=== PATIENT | male | born 1975 | race Caucasian/White ===

== ENCOUNTER → 2017-12-04 06:38 | Outpatient (CLI) | payer OTHER, SELFPAY ==
--- NOTE | 2017-12-04 | DI.MRI.S_ITS ---
PROCEDURE: MR ANKLE RT WO CON INDICATIONS: 42-year-old male with chronic right ankle pain, and posterior tibialis tendon dysfunction. TECHNIQUE: Noncontrast sagittal T1 spin echo and T2 fast spin echo with fat saturation, axial proton density fast spin echo and T2 fast spin echo with fat saturation, coronal T1 spin echo and T2 fast spin echo with fat saturation through the ankle/hindfoot. COMPARISON: [facility], RG, FOOT COMP MIN 3VW (RT), 10/02/2017, 12:19. [facility], CR, XR FOOT 3VW RT, 01/20/2017, 9:08. [facility], MR, MR FOOT RIGHT WITHOUT CONTRAST, 12/12/2016, 17:00. [facility], RG, FOOT COMP MIN 3VW (RT), 06/22/2016, 14:52. [facility], MR, MR FOOT RIGHT WITHOUT CONTRAST, 06/15/2016, 16:40. FINDINGS: Image quality: Excellent. Bones and joints: No bone marrow contusions or fractures. Reactive bone marrow edema within the medial navicular pole has decreased. No hindfoot coalitions. No osteochondral injuries of the talar dome. No pathologic joint effusions. Medial structures: The posterior tibialis, flexor digitorum longus, and flexor hallucis longus tendons are intact. There is localized signal heterogeneity within the distal posterior tibialis tendon as before, consistent with tendinopathy without tears. There is small posterior tibialis tendon sheath fluid as well. The posterior tibial neurovascular bundle appears normal within the tarsal tunnel, without extrinsic mass effect. The deep layer and superficial layer of the deltoid ligament appear normal. The spring ligament components are intact. Lateral structures: The anterior talofibular, calcaneofibular, and posterior talofibular ligaments appear intact. More superiorly, the anterior and posterior tibiofibular ligaments appear intact, as is the intermalleolar ligament. The tibiofibular syndesmosis is normal in width at 2 mm or less. The peroneus longus and brevis tendons demonstrate normal location and morphology. Adjacent bony peroneal tubercle and retrotrochlear prominence are normal in size. The sinus tarsi demonstrates normal fatty signal, without edema, fibrosis, or cyst formation. Visualized sinus tarsi components appear normal. The calcaneonavicular and calcaneocuboid components of the bifurcate ligament appear intact. The dorsal calcaneocuboid ligament appears intact. Anterior structures: The tibialis anterior, extensor hallucis longus, and extensor digitorum longus tendons appear intact. The dorsal talonavicular ligament appears intact. Posterior and plantar structures: Achilles tendon is intact. Medial and lateral bands of the plantar fascia are of normal thickness. No abductor digiti quinti muscle atrophy to suggest Carbajal neuropathy. IMPRESSION: Findings of persistent distal posterior tibialis tenosynovitis and tendinopathy, without discrete tears identified. Localized reactive marrow edema involving the medial navicular pole has decreased since December 2016. Dictated by: Pablito Buckley M.D. on 12/04/2017 at 9:00 Approved by: Pablito Buckley M.D. on 12/04/2017 at 9:14
== END ==
PROVIDERS: Visit Provider Orthopaedic Surgery Foot and Ankle Surgery
DX: M25.571 Pain in right ankle and joints of right foot (principal); M65.9 Synovitis and tenosynovitis, unspecified
CPT/HCPCS: 73721

== ENCOUNTER 2018-01-05 06:39 | Day surgery (SDC) | payer OTHER, SELFPAY ==
[2017-12-27 16:20] VITALS: BMI 28.5
[2018-01-05 07:17] VITALS: BP 134/88; PULSE 65; RESP 16; TEMP 36.1; O2SAT 98; BMI 28.5
--- NOTE | 2018-01-05 07:26 | PM.PREOP ---
Pre-operative Note Interval Note Pre-op Check: Yes History & Physical Reviewed by Physician and Yes Exam Performed Changes: No
[2018-01-05] MEDS: LACTATED RINGERS 1,000 ML 42 ML IV (07:30)
[2018-01-05] MEDS: CEFAZOLIN 2 GM/100 ML FROZ.PIGGY IV (08:09)
--- NOTE | 2018-01-05 08:13 | SUR.PREOP ---
Block start time [0750] . Monitoring initiated and maintained throughout procedure. Oxygen and medications given per anesthesiologist instructions. Patient remained stable throughout procedure, no adverse reactions noted. Block end time [0804].
--- NOTE | 2018-01-05 08:28 | SUR.OPER ---
Supine on padded OR bed, head on pillow, arms secured on padded arm boards at <90 degrees abduction, safety belt at abdomen, tape over blanket over lower left leg, right leg draped free.
[2018-01-05] MEDS: BUPIVACAINE 0.5% (PF) VIAL 30 ML INJ (08:43)
--- NOTE | 2018-01-05 08:46 | PM.PROC.1 ---
Procedures Date/Time Date of procedure: 01/05/18 Time of procedure: 07:50 General Procedure description: Ultrasound guided adductor canal nerve block for post op pain control after Right posterior tibialis tendon debridement/gastroc lengthening by Dr. Peters. Risk and benefits of procedure discussed with patient. ASA monitoring applied to patient. O2 given via nasal cannula. 2 mg Versed and 50 mcg fentanyl given for procedural sedation. Skin site was prepped with chlorhexidine and allowed to fully dry. Sterile gloves, mask, hat and probe cover were used to maintain sterility. 2% lidocaine and 30ga needle was used to make a small skin wheal at needle insertion site. Under ultrasound guidance, a 21ga 100mm Pajunk needle was directed into the adductor canal near femoral artery and saphenous nerve at the level of mid thigh. Patient reported no parasthesias. After negative aspiration, 10 mL 0.5% ropivicaine and 3mg dexamethasone were injected around saphenous nerve. Patient tolerated procedure well. Skin prepped with chlorhexidine for popliteal approach Sciatic nerve block with ultrasound guidance, similar technique as described above was employed. Needle tip was guided to division of the sciatic nerve in the popliteal fossa. After negative aspiration, 20ml 0.5% ropivicaine plus 7mg dexamethasone were injected without parasthesias. Good spread of medication around sciatic nerve.
[2018-01-05 09:35] VITALS: BP 109/66; PULSE 68; RESP 16; TEMP 36.3; O2SAT 98
[2018-01-05 09:40] VITALS: BP 116/81; PULSE 68; RESP 17; O2SAT 98
[2018-01-05] MEDS: fentaNYL 100 MCG/2 ML INJ 50 MCG IV ×3 (09:41→09:55)
[2018-01-05 09:45] VITALS: BP 112/76; PULSE 64; RESP 17; O2SAT 98
[2018-01-05 09:57] VITALS: BP 125/84; PULSE 75; RESP 17; TEMP 36.1; O2SAT 96
[2018-01-05] MEDS: HYDROMORPHONE 1 MG INJ 0.5 MG IV (10:00)
--- NOTE | 2018-01-05 10:02 | P.OP_ITS ---
Operative Date/Time/Diagnoses Date of procedure: 01/05/18 Time of procedure: 09:40 Pre-op diagnosis: 1. Right posterior tibialis tendinitis, PTTD stage I 2. Gastrocnemius contracture/equinus 3. Low vitamin-D level Post-op diagnosis: same Procedure & Clinicians Procedure: 1. Gastroc lengthening , resection, right CPT 26783 2. tenosynovectomy right posterior tibialis tendon, tenolysis flexor CPT code 91388 Same procedure as scheduled: Yes Indications: The patient is a 42-year-old male with over 18 months of right foot arch pain and posterior tibialis tendinitis. Patient has failed exhaustive conservative treatment with initial casting for 6 weeks in June 2016 followed by utilization of a walking boot and physical therapy. He has also failed custom orthotics and several other courses of physical therapy. States the pain bothers him every day. Previous MRI he has been noted to have medial navicular bone marrow edema but on the most recent MRI this has improved however the patient continues to have pain along the posterior tibialis tendon remarkable gastroc tightness. He is in treatment for his low vitamin-D level. Given his failure of extensive conservative treatment he has been indicated for a posterior tibialis tendon debridement tenosynovectomy possible repair or transfer and gastroc lengthening. The risks benefits and alternatives to the procedure were discussed with the patient in detail including infection, persistent pain, inability to return to his desired activity level, damage to nerves or vessels, DVT, PE, need for additional surgery, cardiopulmonary complications associated with general anesthesia and . Patient expressed understanding of these risks and elected to proceed with surgery. Consent was signed in the office Surgeon: Florencia Peters Religious Activities Director: Liliana Quintanilla Anesthesia Type: General and Peripheral nerve block Operative Notes Findings: Mild posterior tibialis tendon synovitis. No rupture or gross tearing. There is a small area of mucoid degenerative tissue at the distal inferior posterior tibialis tendon this was carefully debrided. Closure Type: primary Specimen(s): none sent Implants & Drains: None Estimated Blood Loss (mL): 5 Blood products transfused: none Tourniquet time (min): 59 Procedure in detail: Patient was seen and evaluated in the preoperative area. Informed consent was confirmed and the patient's side and site of surgery was marked. Final questions were answered. Patient was then brought to the block room by the anesthesia team. Saphenous nerve block was performed for intraop and postop pain control. The patient was then taken to the operating room and placed supine on the operating table. General anesthesia was administered. All bony prominence were padded. An SCD was placed on the contralateral leg. Care was taken to make sure the heel and peroneal nerve were well padded. Well-padded thigh tourniquet was placed on the operative leg. The operative leg was prepped and draped in the standard sterile fashion after a initial scrubbed with alcohol and chlorhexidine. A formal time-out procedure was performed confirming the patient's side and site of surgery and administration of appropriate preoperative antibiotics in this case was 2 g of Ancef. All were in agreement. Exam under anesthesia was performed showing ankle dorsiflexion with knee extension and knee flexion. With knee extension the patient was unable to get past neutral. With knee flexion the patient was able to reach 15? of dorsiflexion. This is consistent with a gastroc contracture and the decision was made to proceed with the gastroc recession. An Esmarch bandage was then utilized for exsanguination. The tourniquet was elevated to 300 mm mercury and stayed there for 59 min. Attention was turned to the mid calf. Markings were made on the posterior medial calf starting approximately 14 cm above the superior calcaneus at the musculotendinous junction. Approximately 2 cm longitudinal incision was made down through the skin. The fascia was opened and blunt finger dissection was utilized to dissect over the gastroc. crural fascia was then incised longitudinally and carefully retracted laterally for protection of the sural nerve. Fresh blade was then utilized to transect the gastroc fascia in a medial to lateral fashion transversely. Complete release was confirmed blunt finger palpation. And the ankle was taken into dorsiflexion. A nice 2 cm lengthening was achieved which provided at least 20? of dorsiflexion with knee extension. We were very satisfied with this lengthening and wound was irrigated and closed with 3-0 Monocryl subcutaneous and the 3 O nylon in the skin. Attention was then turned to the medial ankle the posterior tibialis tendon. Approximately 7 cm curvilinear incision following the course of the posterior tibialis tendon was taken from just proximal to the medial malleolus to the level of the navicular. This was carefully taken down through the skin and small vessels were cauterized. The flexor retinaculum and tendon sheath was then opened exposing the posterior tibialis tendon. Good cuff of tissue was left for later repair. Posterior tibialis tendon was inspected. There was noted to be a mild amount of red synovitis along the tendon from the medial malleolus distally to the insertion at the navicular. There were no gross tears noted. There was a small amount of degenerative type tissue at the inferior aspect of the insertion at the navicular this was carefully debrided. The rest of the tendon appeared in good condition exception of the synovitis which was thoroughly debrided. The FDL tendon was also inspected the proximal aspect of the incision in its own sheath and noted to have some synovitis at the musculotendinous junction. This was also excised. Once we were satisfied with the debridement and thorough irrigation was completed. The tendon sheath was reapproximated and closed with 2 0 Maxon suture. 4-0 Monocryl suture was used subcutaneously this 3 0 nylon in the skin. Sterile dressings were placed with Xeroform gauze and Webril. A stirrup splint was placed with the foot maintained in neutral position. All counts were correct. Patient was awoken from anesthesia and taken the postop area in good condition. There no known complications from this procedure. Complications: none Condition: stable Disposition: PACU Plan for aftercare: Patient will be 3 weeks nonweightbearing in the splint or boot. He will then have 3 weeks of protected weight-bearing in the boot. Patient will start DVT prophylaxis with 325 mg of aspirin daily starting postop day 1.
[2018-01-05] MEDS: OXYCODONE/ACETAMINOPHEN 5/325 TABLET 1 TAB PO ×2 (10:21→10:22)
[2018-01-05 15:10] VITALS: BP 110/75; PULSE 55; TEMP 36.1; O2SAT 99
== END 2018-01-05 10:42 | disposition home or self-care (01) ==
PROVIDERS: Visit Provider Orthopaedic Surgery Foot and Ankle Surgery
PROC: (CPT 28735; principal; 2018-01-05 07:45)
DX: M76.821 Posterior tibial tendinitis, right leg (principal); G89.18 Other acute postprocedural pain; E55.9 Vitamin D deficiency, unspecified; M62.461 Contracture of muscle, right lower leg; Y93.89 Activity, other specified; D75.89 Other specified diseases of blood and blood-forming organs
CPT/HCPCS: 27680; 27687; 64450; J0690; J1100; J1170; J2250; J2405; J2704; J2795; J3010

== ENCOUNTER → 2018-01-22 09:18 | Outpatient (CLI) | payer OTHER, SELFPAY ==
--- NOTE | 2018-01-22 | DI.MRI.S_ITS ---
PROCEDURE: MR SHOULDER RT W CON INDICATIONS: PAIN IN RIGHT SHOULDER TECHNIQUE: After the administration of 12 mL of dilute intra-articular Gadolinium contrast, oblique coronal T1 and T2 spin echo with fat saturation, oblique sagittal T1 spin echo with and without fat saturation, oblique sagittal T2 fast spin echo with fat saturation, axial T1 spin echo with fat saturation through the shoulder. (Please note that this MRI was performed at [facility] not at [facility][note 3] as noted on the images. This was due to a technical error.) COMPARISON: [facility], RF, FL ARTHROGRAM SHOULDER RT, 01/22/2018, 9:50. [facility], MR, SHOULDER WITH CONTRAST, 07/09/2014, 13:30. [facility], MR, UP EXT WITH, 08/25/2008, 14:50. FINDINGS: Image quality: Diagnostic. Rotator cuff: No full-thickness or high-grade partial-thickness tear of the rotator cuff is identified. There is mild supraspinatus tendinopathy and subscapularis tendinopathy with areas of low grade articular surface partial thickness tearing. Infraspinatus and teres minor tendons are intact. There is no significant atrophy of the rotator cuff muscles. Bones and bursae: There is no acute fracture, dislocation, or suspicious osseous lesion evident involving the osseous structures of the right shoulder. There mild degenerative changes noted involving the glenohumeral joint with slight irregularity of the hyaline articular cartilage. Postoperative changes of the glenoid fossa are compatible with prior posterosuperior labral repair procedure. There is adequate distention of the glenohumeral joint with the injected contrast. No definite loose intra-articular joint bodies are appreciated. No contrast is seen extending into the subacromial subdeltoid bursa. There appear to be postoperative changes along the undersurface of the acromion. No significant fluid is seen within the subacromial subdeltoid bursa region. Capsule and soft tissues: Post surgical changes are noted involving the posterosuperior aspect of the glenoid. Contrast is again seen extending along the labral cartilaginous junction through the same region as noted on the prior study. The degree of labral tearing has not significantly progressed in the interim. No new labral tears are identified. Interval postoperative changes of the long head of the biceps tendon are present related to interval biceps tenodesis. The reattached tendon is not adequately included on this examination. The superior, middle, and inferior glenohumeral ligaments appear to be intact. IMPRESSION: 1. Liver partial-thickness tearing and tendinopathy of the distal supraspinatus and subscapularis tendons. No full-thickness tear. 2. Interval postoperative changes of the glenoid. The degree of labral tearing has not significantly progressed. There are no new labral tears. 3. Interval biceps tenodesis. The reattached tendon is not included on this exam. 4. Mild degenerative changes of the glenohumeral joint. Dictated by: Suresh Ray M.D. on 01/23/2018 at 15:48 Approved by: Suresh Ray M.D. on 01/23/2018 at 15:53
--- NOTE | 2018-01-22 | DI.RAD.S_ITS ---
PROCEDURE: FL ARTHROGRAM SHOULDER RT INDICATIONS: PAIN IN RIGHT SHOULDER TECHNIQUE: The indications, alternatives, benefits, risks, and complications of the procedure were explained to the patient. Written informed consent was obtained and placed in the chart. The shoulder was examined fluoroscopically and a site for needle placement chosen for entry into the glenohumeral joint from an anterior approach. The skin was prepped and draped in a sterile fashion, and 1% lidocaine infiltrated from skin down to joint capsule. A spinal needle was inserted into the glenohumeral joint, and a small amount of iodinated contrast media injected to confirm intra-articular placement of the needle tip. This was followed by approximately 12 mL dilute solution of a gadolinium containing MR contrast agent. The needle was removed and a dressing was applied. The patient was given postprocedural instructions and sent to the MR suite for MR imaging. FINDINGS: A single fluoroscopic spot image demonstrates intra-articular location of injected iodinated contrast. IMPRESSION: Successful fluoroscopically guided administration of dilute Gadolinium solution into the shoulder joint for MR arthrogram. Dictated by: Tomasz Villagomez M.D. on 01/22/2018 at 10:23 Approved by: Tomasz Villagomez M.D. on 01/22/2018 at 10:23
== END ==
PROVIDERS: Visit Provider Orthopaedic Surgery
DX: M25.511 Pain in right shoulder (principal); M75.111 Incomplete rotator cuff tear or rupture of right shoulder, not specified as traumatic; M19.011 Primary osteoarthritis, right shoulder
CPT/HCPCS: 73040; 73222; 77002